=== PATIENT | male | born 1970 | race Caucasian/White ===

== ENCOUNTER 2023-12-17 08:11 | Day surgery (SDC) | payer BC ==
[~2023-12-17] VITALS: Ht 175.3 cm; Wt 105.3 kg
[~2023-12-17 08:11] MED LIST: CEPHALEXIN500 M1 PO; LISINOPRIL20 MG PO; LORTAB 5/500 501 TAB PO; LR 1,000 ML IV SCH; Ondansetron 4 MG/2 ML VIAL IV PRN
--- NOTE | 2023-12-17 08:37 | NUR ---
Pt arrived with , states bowels are WNL for the procedure; VSS though BP slightly elevated on first attempt, RR even and unlabored; reveiwed meds/pharm/allergies/history; reviewed and signed consents, no questions/concerns. To place IV and await procedure.
[2023-12-17 08:57] VITALS: BP 129/94; PULSE 56; TEMP 97.2
[2023-12-17] MEDS ORDERED: Lidocaine PF 2% (20 MG/ML) 5 ML VIAL ONE (09:24)
[2023-12-17] MEDS ORDERED: fentaNYL 50 MCG/ML 2 ML VIAL ONE (09:24)
[2023-12-17 09:55] VITALS: BP 121/86; PULSE 62; TEMP 97.6
--- NOTE | 2023-12-17 09:55 | NUR ---
0955- PATIENT RETURNS TO [facility] VIA CART. PT AWAKE AND ALERT. RESPIRATIONS UNLABORED. AMBULATED TO RECLINER CHAIR WITH 2:1 SBA. PT DENIES NAUSEA OR ABDOMINAL PAIN. HOOKED UP TO MONITOR AND VS OBTAINED. CALL LIGHT AT SIDE AND PRESENT. 1001- PATIENT TOLERATING BLACK COFFEE AND HE DECLINED A SNACK. 1010- DR. BERMUDEZ IN ROOM SPEAKING WITH PATIENT. 1022- D/C INSTRUCTIONS REVIEWED WITH PATIENT. PT VERBALIZED UNDERSTANDING AND A COPY OF INSTRUCTIONS PROVIDED IN D/C FOLDER. 1023- PATIENT DRESSES SELF. 1029- PATIENT DISCHARGED FROM UNIT VIA W/C TO A PERSONAL VEHICLE. PT LEFT HOSPITAL IN STABLE CONDITION.
[2023-12-17 10:00] VITALS: BP 119/88; PULSE 53
[2023-12-17 10:15] VITALS: BP 136/88; PULSE 54
== END 2023-12-17 10:29 | disposition home or self-care (01) ==
LOC: SDCO 08:11
DX: Z12.11 Encounter for screening for malignant neoplasm of colon (principal); D12.4 Benign neoplasm of descending colon; K57.30 Diverticulosis of large intestine without perforation or abscess without bleeding; K64.0 First degree hemorrhoids
CPT/HCPCS: J2704; J3010; J7120